=== PATIENT | female | born 1965 | race Caucasian/White ===

== ENCOUNTER 2018-07-11 14:34 | Emergency (ER) | payer MEDICARE, OTHER | END 2018-07-11 15:58 | disposition left against medical advice (07) | LOC: ER 14:34 | DX: Z53.21 Procedure and treatment not carried out due to patient leaving prior to being seen by health care provider (principal) ==

== ENCOUNTER → 2018-11-18 | Outpatient (CLI) | payer MEDICARE, OTHER ==
[2018-11-18 19:34] LABS: BASOPHILS ABSOLUTE AUTO 0.03 K/mm3 (0.00-0.23); BASOPHILS PERCENT AUTO 0 % (0-2); EOSINOPHILS ABSOLUTE AUTO 0.13 K/mm3 (0.00-0.68); EOSINOPHILS PERCENT AUTO 2 % (0-6); Hematocrit 42.2 % (33.0-51.0); Hemoglobin 14.2 g/dL (11.5-16.0); IMMATURE GRAN ABSOLUTE AUTO 0.01 K/mm3 (0.00-0.10); IMMATURE GRAN PERCENT AUTO 0 % (0-1); LYMPHOCYTES ABSOLUTE AUTO 1.76 K/mm3 (0.84-5.20); LYMPHOCYTES PERCENT AUTO 26 % (21-46); MONOCYTES ABSOLUTE AUTO 0.53 K/mm3 (0.16-1.47); MONOCYTES PERCENT AUTO 8 % (4-13); Mean Corpuscular HGB 28.9 pg (26.0-34.0); Mean Corpuscular HGB Conc 33.6 g/dL (31.5-36.5); Mean Corpuscular Volume 86 fL (80-100); NEUTROPHILS ABSOLUTE AUTO 4.41 K/mm3 (1.96-9.15); NEUTROPHILS PERCENT AUTO 64 % (41-73); Platelet Count 212 K/mm3 (150-400); RDW Coefficient Variation 12.8 % (11.7-14.2); RDW Standard Deviation 40.4 fL (35.1-46.3); Red Blood Cell Count 4.92 M/mm3 (3.80-5.20); White Blood Cell Count 6.87 K/mm3 (4.00-11.30)
[2018-11-18 19:56] LABS: LDL/HDL RATIO 1.9
[2018-11-18 19:57] LABS: Alanine Aminotransfer (ALT/SGP 26 U/L (12-78); Albumin, Blood 3.9 g/dL (3.4-5.0); Albumin/Globulin Ratio 1.1 (0.8-1.8); Alk Phos 114 U/L (50-136); Anion Gap 5 mmol/L (6-16); Aspartate Aminotrans (AST/SGOT 19 U/L (12-37); Bilirubin, Total 0.3 mg/dL (0.1-1.0); Blood Urea Nitrogen 17 mg/dL (8-24); CHOL/HDL RATIO 3.1; CO2, Blood 28 mmol/L (21-32); Calcium, Blood 8.9 mg/dL (8.5-10.1); Chloride, Blood 104 mmol/L (98-108); Cholesterol 243 mg/dL (50-200); Globulin, Blood 3.7 g/dL (2.2-4.0); Glucose, Blood 86 mg/dL (70-99); HDL Cholesterol 78 mg/dL (>39); Low Density Lipoprotein Chol 147 mg/dL (0-110); Potassium, Blood 3.7 mmol/L (3.5-5.5); Sodium, Blood 137 mmol/L (136-145); Total Protein, Blood 7.6 g/dL (6.4-8.2); Triglycerides 88 mg/dL (30-160); Very Low Density Lipoprot Chol 17 mg/dL (6-32)
[2018-11-18 20:12] LABS: Bun/Creatinine Ratio 22.4 (12.0-20.0); Carbamazepine 7.1 ug/mL (4.0-12.0); Creatinine, Blood 0.76 mg/dL (0.40-1.00); Glomerular Filtration Rate >60 (60-)
== END | disposition home or self-care (01) ==
LOC: LAB SHORT 16:45 → LAB 16:45
PROVIDERS: Physician Assistant
DX: E03.9 Hypothyroidism, unspecified (principal); I10 Essential (primary) hypertension; F32.89 Other specified depressive episodes
CPT/HCPCS: 80053; 80061; 80156; 84443; 85025

== ENCOUNTER 2023-06-11 16:45 | Emergency (ER) | payer MEDICARE, OTHER ==
[~2023-06-11] VITALS: Ht 172.7 cm; Wt 68.0 kg
[2023-06-11 17:12] LABS: BASOPHILS ABSOLUTE AUTO 0.05 K/mm3 (0.00-0.23); BASOPHILS PERCENT AUTO 1 % (0-2); EOSINOPHILS ABSOLUTE AUTO 0.06 K/mm3 (0.00-0.68); EOSINOPHILS PERCENT AUTO 1 % (0-6); Hematocrit 45.2 % (33.0-51.0); IMMATURE GRAN ABSOLUTE AUTO 0.02 K/mm3 (0.00-0.10); IMMATURE GRAN PERCENT AUTO 0 % (0-1); LYMPHOCYTES ABSOLUTE AUTO 1.16 K/mm3 (0.84-5.20); LYMPHOCYTES PERCENT AUTO 16 % (21-46); MONOCYTES ABSOLUTE AUTO 0.46 K/mm3 (0.16-1.47); MONOCYTES PERCENT AUTO 6 % (4-13); Mean Corpuscular HGB 27.7 pg (26.0-34.0); Mean Corpuscular HGB Conc 33.2 g/dL (31.5-36.5); Mean Corpuscular Volume 84 fL (80-100); Mean Platelet Volume 8.9 fL (9.1-12.4); NEUTROPHILS ABSOLUTE AUTO 5.43 K/mm3 (1.96-9.15); NEUTROPHILS PERCENT AUTO 76 % (41-73); Platelet Count 164 K/mm3 (150-400); RDW Coefficient Variation 13.2 % (11.7-14.2); RDW Standard Deviation 40.2 fL (35.1-46.3); Red Blood Cell Count 5.41 M/mm3 (3.80-5.20); White Blood Cell Count 7.18 K/mm3 (4.00-11.30)
[2023-06-11 17:33] LABS: Albumin, Blood 3.8 g/dL (3.4-5.0); Bilirubin, Total 0.4 mg/dL (0.1-1.0); Bun/Creatinine Ratio 23.9 (12.0-20.0); Calcium, Blood 9.8 mg/dL (8.5-10.1); Creatinine, Blood 0.67 mg/dL (0.40-1.00); Magnesium, Blood 2.2 mg/dL (1.6-2.4); Potassium, Blood 4.1 mmol/L (3.5-5.5); Total Protein, Blood 7.8 g/dL (6.4-8.2)
[2023-06-11] MEDS ORDERED: AMITRIPTYLINE100 M6 PO (21:36)
[2023-06-11] MEDS ORDERED: CARBAMAZEPINE200 M7 PO (21:36)
[2023-06-11] MEDS ORDERED: Synthroid/Levo0.2 MG PO (21:38)
[2023-06-11] MEDS ORDERED: Prinivil10 MG PO ×2 (21:38→21:53)
[2023-06-11 22:22] VITALS: BP 146/100
== END 2023-06-11 22:22 | disposition home or self-care (01) ==
LOC: ER 16:45
PROVIDERS: Physician Assistant
DX: R06.02 Shortness of breath (principal); F32.A Depression, unspecified; I10 Essential (primary) hypertension; R41.82 Altered mental status, unspecified
CPT/HCPCS: 71046; 80053; 83735; 85025; 99285-25; A9270

== ENCOUNTER → 2024-01-02 | Outpatient (CLI) | payer MEDICARE, OTHER ==
[~2024-01-02] MED LIST: AMITRIPTYLINE100 M6 PO; CARBAMAZEPINE200 M7 PO; Prinivil10 MG PO; Synthroid/Levo0.2 MG PO
[2024-01-02 19:12] LABS: Free Thyroxine 1.15 ng/dL (0.70-1.60)
[2024-01-02 19:16] LABS: Thyroid Stimulating Hormone 3.32 uIU/mL (0.360-4.800)
== END | disposition home or self-care (01) ==
LOC: LAB 09:50 → LAB SHORT 09:50
PROVIDERS: Nurse Practitioner Family
DX: E03.9 Hypothyroidism, unspecified (principal)
CPT/HCPCS: 84439; 84443

== ENCOUNTER 2024-07-13 16:02 | Emergency (ER) | payer MEDICARE, OTHER ==
[~2024-07-13] VITALS: Ht 177.8 cm; Wt 65.8 kg
[2024-07-13] MEDS ORDERED: EUTHYROX150 MC1 PO (17:13)
[2024-07-13] MEDS ORDERED: PRILOSEC OTC20 MG PO (17:13)
[2024-07-13] MEDS ORDERED: ATOR10 PO (17:13)
[2024-07-13] MEDS ORDERED: ZOLOFT25 MG PO (17:14)
[2024-07-13 17:21] LABS: BASOPHILS ABSOLUTE AUTO 0.05 K/mm3 (0.00-0.23); BASOPHILS PERCENT AUTO 1 % (0-2); EOSINOPHILS ABSOLUTE AUTO 0.03 K/mm3 (0.00-0.68); EOSINOPHILS PERCENT AUTO 0 % (0-6); Hematocrit 40.7 % (33.0-51.0); Hemoglobin 14.2 g/dL (11.5-16.0); IMMATURE GRAN ABSOLUTE AUTO 0.02 K/mm3 (0.00-0.10); IMMATURE GRAN PERCENT AUTO 0 % (0-1); LYMPHOCYTES ABSOLUTE AUTO 1.26 K/mm3 (0.84-5.20); LYMPHOCYTES PERCENT AUTO 12 % (21-46); MONOCYTES ABSOLUTE AUTO 0.93 K/mm3 (0.16-1.47); MONOCYTES PERCENT AUTO 9 % (4-13); Mean Corpuscular HGB 29.5 pg (26.0-34.0); Mean Corpuscular HGB Conc 34.9 g/dL (31.5-36.5); Mean Corpuscular Volume 85 fL (80-100); NEUTROPHILS ABSOLUTE AUTO 8.09 K/mm3 (1.96-9.15); NEUTROPHILS PERCENT AUTO 78 % (41-73); Platelet Count 228 K/mm3 (150-400); RDW Coefficient Variation 12.2 % (11.7-14.2); RDW Standard Deviation 37.5 fL (35.1-46.3); Red Blood Cell Count 4.81 M/mm3 (3.80-5.20); White Blood Cell Count 10.38 K/mm3 (4.00-11.30)
[2024-07-13 17:43] LABS: Albumin, Blood 4.1 g/dL (3.4-5.0); Albumin/Globulin Ratio 1.1 (0.8-1.8); Bilirubin, Total 0.5 mg/dL (0.1-1.0); Bun/Creatinine Ratio 38.4 (12.0-20.0); Calcium, Blood 9.6 mg/dL (8.5-10.1); Creatinine, Blood 0.63 mg/dL (0.40-1.00); Globulin, Blood 3.9 g/dL (2.2-4.0); Potassium, Blood 2.8 mmol/L (3.5-5.5)
[2024-07-13] MEDS ORDERED: Amitriptyline HCl 50 MG Tab PO ONE (18:05)
[2024-07-13] MEDS ORDERED: Amitriptyline HCl 50 MG Tab PO SCH (21:00)
[2024-07-14 03:00] VITALS: BP 99/78
[2024-07-14] MEDS ORDERED: Levothyroxine Sodium 0.15 MG Tab PO SCH (06:00)
[2024-07-14] MEDS ORDERED: Omeprazole 20 MG CapCR PO SCH (06:00)
[2024-07-14] MEDS ORDERED: Atorvastatin 10 MG Tab PO SCH (09:00)
[2024-07-14] MEDS ORDERED: Lisinopril 10 MG Tab PO SCH (09:00)
== END 2024-07-14 10:59 | disposition home or self-care (01) ==
LOC: ER 16:02
PROVIDERS: Student in an Organized Health Care Education/Training Program
DX: F41.9 Anxiety disorder, unspecified (principal); Z91.120 Patient's intentional underdosing of medication regimen due to financial hardship; F80.9 Developmental disorder of speech and language, unspecified; I10 Essential (primary) hypertension; K21.9 Gastro-esophageal reflux disease without esophagitis; Z88.0 Allergy status to penicillin; Z88.1 Allergy status to other antibiotic agents; Z79.899 Other long term (current) drug therapy; Z79.890 Hormone replacement therapy; Z79.02 Long term (current) use of antithrombotics/antiplatelets
CPT/HCPCS: 71046; 80053; 85025; 93005; 93010; 99285-25; A9270

== ENCOUNTER 2024-07-20 14:11 | Emergency (ER) | payer MEDICARE, OTHER ==
[~2024-07-20] VITALS: Ht 167.6 cm; Wt 53.5 kg
[~2024-07-20 14:11] MED LIST changes: +ATOR10 PO; +EUTHYROX150 MC1 PO; +PRILOSEC OTC20 MG PO; +ZOLOFT25 MG PO
[2024-07-20 14:49] VITALS: BP 110/73
== END 2024-07-20 16:09 | disposition left against medical advice (07) ==
LOC: ER 14:11
DX: Z76.89 Persons encountering health services in other specified circumstances (principal); I10 Essential (primary) hypertension; K21.9 Gastro-esophageal reflux disease without esophagitis; Z88.1 Allergy status to other antibiotic agents; Z79.899 Other long term (current) drug therapy; Z79.890 Hormone replacement therapy; Z79.1 Long term (current) use of non-steroidal anti-inflammatories (NSAID); Z79.02 Long term (current) use of antithrombotics/antiplatelets
CPT/HCPCS: 99283

== ENCOUNTER 2024-07-21 08:08 | Observation (INO) | payer MEDICARE, OTHER ==
[~2024-07-21] VITALS: Ht 177.8 cm; Wt 72.6 kg
[2024-07-21] MEDS ORDERED: LORazepam 1 MG Tab SL ONE (08:55)
[2024-07-21 09:50] VITALS: BP 115/90
[2024-07-21 09:53] LABS: Source, Urine Clean Catch
[2024-07-21 09:56] LABS: BASOPHILS ABSOLUTE AUTO 0.05 K/mm3 (0.00-0.23); BASOPHILS PERCENT AUTO 1 % (0-2); EOSINOPHILS ABSOLUTE AUTO 0.05 K/mm3 (0.00-0.68); EOSINOPHILS PERCENT AUTO 1 % (0-6); Hematocrit 41.4 % (33.0-51.0); Hemoglobin 14.1 g/dL (11.5-16.0); IMMATURE GRAN ABSOLUTE AUTO 0.02 K/mm3 (0.00-0.10); IMMATURE GRAN PERCENT AUTO 0 % (0-1); LYMPHOCYTES ABSOLUTE AUTO 1.08 K/mm3 (0.84-5.20); LYMPHOCYTES PERCENT AUTO 12 % (21-46); MONOCYTES ABSOLUTE AUTO 0.72 K/mm3 (0.16-1.47); MONOCYTES PERCENT AUTO 8 % (4-13); Mean Corpuscular HGB 29.4 pg (26.0-34.0); Mean Corpuscular HGB Conc 34.1 g/dL (31.5-36.5); Mean Corpuscular Volume 86 fL (80-100); Mean Platelet Volume 8.6 fL (9.1-12.4); NEUTROPHILS ABSOLUTE AUTO 7.26 K/mm3 (1.96-9.15); NEUTROPHILS PERCENT AUTO 79 % (41-73); Platelet Count 202 K/mm3 (150-400); RDW Coefficient Variation 12.6 % (11.7-14.2); Red Blood Cell Count 4.79 M/mm3 (3.80-5.20); White Blood Cell Count 9.18 K/mm3 (4.00-11.30)
[2024-07-21 10:01] LABS: Appearance, Urine Clear (Clear); Blood, Urine Neg (Neg); Color, Urine Yellow (P-Yellow); Glucose Qualitative, Urine Neg (Neg); Ketones, Urine 2+ (Neg); Leukocyte Esterase, Urine 2+ (Neg); Nitrite, Urine Neg (Neg); Protein, Urine 2+ (Neg); Specific Gravity, Urine 1.025 (1.003-1.022); Urobilinogen, Urine 2+ (Normal)
[2024-07-21 10:10] LABS: Bilirubin, Urine 1+ (Neg)
[2024-07-21 10:11] LABS: Squamous Epithelial Cells Many /hpf (Few)
[2024-07-21 10:12] LABS: Mucus Mod (0-Heavy); Red Blood Cells, Urine 0-2 /hpf (0-2); Yeast/Fungi Urine Many /hpf
[2024-07-21 10:13] LABS: Bacteria Mod /hpf
[2024-07-21 10:14] LABS: U Amphetamine Screen Not Detected; U Barbituate Screen Not Detected; U Benzodiazapine Screen DETECTED; U Buprenorphine Screen Not Detected; U Cannabinoids Screen Not Detected; U Cocaine Screen Not Detected; U Methadone Screen Not Detected; U Methamphetamine Screen Not Detected; U Opiates Screen Not Detected; U Oxycodone Screen Not Detected; U Phencyclidine Screen Not Detected
[2024-07-21 10:21] LABS: Ethanol (Alcohol), Blood, Med <3 mg/dL; Salicylate <1.7 mg/dL (2.8-20.0)
[2024-07-21 10:30] LABS: Alanine Aminotransfer (ALT/SGP 33 U/L (12-78); Alk Phos 91 U/L (50-136); Anion Gap 10 mmol/L (3-11); Aspartate Aminotrans (AST/SGOT 29 U/L (12-37); Bilirubin, Total 0.5 mg/dL (0.1-1.0); Blood Urea Nitrogen 20 mg/dL (8-24); Bun/Creatinine Ratio 35.5 (12.0-20.0); CO2, Blood 30 mmol/L (21-32); Calcium, Blood 9.1 mg/dL (8.5-10.1); Chloride, Blood 100 mmol/L (98-108); Creatinine, Blood 0.56 mg/dL (0.40-1.00); Globulin, Blood 3.9 g/dL (2.2-4.0); Glomerular Filtration Rate 104 (60-); Glucose, Blood 92 mg/dL (70-99); Potassium, Blood 3.2 mmol/L (3.5-5.5); Sodium, Blood 137 mmol/L (136-145); Total Protein, Blood 7.9 g/dL (6.4-8.2)
[2024-07-21 10:32] LABS: Acetaminophen, Random <2.0 ug/mL (10.0-30.0)
[2024-07-21] MEDS ORDERED: Potassium Chloride 20 MEQ TabCR PO ONE (10:35)
== END 2024-07-21 18:15 | disposition other institution (70) ==
LOC: ER 08:08 → EOR 15:27 → EDBEDREQSVC 15:27 → EOR 15:27 → EDBEDREQTM 15:27 → EDBEDREQ 15:27 → EOR 18:15
PROVIDERS: Physician Assistant; ADMIT Emergency Medicine
DX: F32.A Depression, unspecified (principal); R06.02 Shortness of breath; E03.9 Hypothyroidism, unspecified; I10 Essential (primary) hypertension; K21.9 Gastro-esophageal reflux disease without esophagitis; Z91.419 Personal history of unspecified adult abuse; Z79.890 Hormone replacement therapy; Z79.899 Other long term (current) drug therapy; Z88.0 Allergy status to penicillin; Z88.1 Allergy status to other antibiotic agents
CPT/HCPCS: 80053; 80320; 81001; 85025; 87086; 99285; A9270; G0378; G0480

== ENCOUNTER 2024-07-21 15:36 | Inpatient (IN) | payer MEDICARE, OTHER ==
[~2024-07-21] VITALS: Ht 177.8 cm; Wt 70.7 kg
[2024-07-21] MEDS ORDERED: Ibuprofen 600 MG Tab PO PRN (16:45)
[2024-07-21] MEDS ORDERED: Aluminum Hydroxide 320MG/5ML 473 ML PO PRN (16:45)
[2024-07-21] MEDS ORDERED: FLU VACC TS2024-25(6MOS UP)/PF 45 MCG/0.5 ML SYRINGE IM SCH (16:45)
[2024-07-21] MEDS ORDERED: HydrOXYzine Pamoate 50 MG Cap PO PRN (16:45)
[2024-07-21] MEDS ORDERED: TraZODone HCl 50 MG Tab PO PRN (16:50)
[2024-07-21] MEDS ORDERED: Acetaminophen 325 MG TABLET PO PRN (16:50)
[2024-07-21] MEDS ORDERED: Polyethylene Glycol 3350 17 gm PO PRN (16:50)
[2024-07-21] MEDS ORDERED: Calcium Carbonate 500 MG Tab Chew PO PRN (16:50)
[2024-07-21] MEDS ORDERED: Melatonin 3 MG Tab PO PRN (16:50)
[2024-07-21] MEDS ORDERED: OLANZapine ODT 10 MG Tab MM PRN (16:50)
[2024-07-21] MEDS ORDERED: Ondansetron 4 MG SoluTab MM PRN (17:05)
[2024-07-21 20:21] VITALS: BP 118/99
[2024-07-21 20:35] VITALS: BP 118/99
--- NOTE | 2024-07-21 21:17 | NUR ---
ADMISSION NOTE: PATIENT ARRIVED ON [facility] AT 1817. SKIN CHECK WAS DONE AND THEN SHIFT CHANGE OCCURRED. RN MET WITH PATIENT IN VISITOR ROOM TO COMPLETE ADMISSION. PATIENT IS A GOOD HISTORIAN. SHE DOES NOT VERBALIZE BUT IS ABLE TO MAKE INFORMATION AND NEEDS KNOWN. SHE USES A PEN AND PAD. HER HANDWRITING IS PARKINSON-LIKE IN APPEARANCE, AND SHE DOES TAKE LEVA-DOPA OR HAS TAKEN IT IN THE PAST. IT WAS NOT ON HER MED RECONCILIATION AND SHE WAS UNSURE. WILL ATTEMPT TO TALK TO SPOUSE AND WILL LET DR KNOW. SHE ALSO STATED SHE TAKES CARBAMAZEPINE, ALTHOUGH HER MED LIST FROM THE EMERGENCY DEPARTMENT HAS IT DISCONTINUED. WILL NOTIFY DR REGARDING THAT MEDICATION WELL. PATIENT DECLINED OFFER OF FLU SHOT. SHE WAS ABLE TO GIVE A GOOD MEDICAL AND PSYCH HISTORY. SHE STATED THAT SHE HAS BEEN DIAGNOSED IN THE PAST WITH "BIPOLAR WITH DEPRESSION". SHE STATED THAT SHE WAS "ANXIOUS AND DEPRESSED" AND "CONSIDERED TAKING PILLS". SHE STATED THAT IT DID NOT FORMULATE INTO AN ACTUAL PLAN. SHE HAS SCARS ON LEFT WRIST AND PARTWAY UP ARM, WHICH SHE STATES ARE OLD SCARS FROM SELF CUTTING "YEARS AGO". SHE ADMITS TO BEING A FORMER SMOKER, 10 YEARS AT A PACK A DAY, STOPPED SMOKING 22 YEARS AGO. SHE HAS ALLERGIES TO SEROQUEL AND THE PENICILLINS. SHE USES A WALKER TO GET AROUND AT HOME, AND HAS AGREED TO USE A WHEELCHAIR HERE, HER WALK IS QUITE UNSTEADY. SHE STATED THAT SHE HAS HAD "SEVERAL" FALLS IN THE PAST THREE MONTHS. SHE PERFORMS OWN ADLS, EVEN IF IT TAKES HER SOME TIME, AND PREFERS TO REMAIN INDEPENDENT POSSIBLE. SHE STATES THAT HER SPOUSE WAS TALKING DOWN TO HER AND YELLING, WHICH HE ONLY DOES WHEN HE HAS BEEN DRINKING. SHE DENIES HIM EVER BEING PHYSICALLY ABUSIVE. SHE WANTS TO GO HOME TO HIM AND HAS BEEN CRYING OFF AND ON, STATING THAT SHE IS CRYING BECAUSE SHE MISSES HIM. VITAL SIGNS WERE WNL. DID NOT WEIGH DUE TO ISSUES WITH UNSTEADINESS. PATIENT STATES WEIGHT IS ABOUT 156 LB. PATIENT IS PLEASANT AND COOPERATIVE WITH CARES. SHE IS FRIENDLY, DESPITE NOT SPEAKING, AND SEEMS COMFORTABLE WITH PEERS. SHE WAS COMPLIANT WITH EVENING MEDICATIONS AND HAD A SNACK AND DRINK WITH PEERS. SHE IS WATCHING AN MOVIE WITH STAFF AND PEERS AT THIS TIME. CONTINUING TO MONITOR FOR SAFETY WITH Q15 MINUTE CHECKS.
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
[2024-07-22 07:53] VITALS: BP 114/68
[2024-07-22] MEDS ORDERED: Multivitamins 1 Tab PO SCH (09:00)
[2024-07-22] MEDS ORDERED: Sertraline HCl 50 MG Tab PO SCH (09:00)
[2024-07-22] MEDS ORDERED: Atorvastatin 10 MG Tab PO SCH (09:00)
[2024-07-22] MEDS ORDERED: Amitriptyline HCl 50 MG Tab PO SCH (09:00)
[2024-07-22] MEDS ORDERED: Levothyroxine Sodium 0.15 MG Tab PO SCH (09:00)
[2024-07-22] MEDS ORDERED: Lisinopril 10 MG Tab PO SCH (09:00)
--- NOTE | 2024-07-22 15:06 | NUR ---
IMPORTANT DISCHARGE INFORMATION FOLLOW UP APPOINTMENT WITH MARITZA RITTER ON 08/10/24 AT 2:50PM PHARMACY: [facility]
--- NOTE | 2024-07-22 18:29 | NUR ---
SHIFT NOTE PT CALM AT BEGINING OF SHIFT AND ASKING FOR HER CELL PHONE TO CONTACT WILLIE. SHE IS REQUSTING TO D/C BACK WITH HIM. SHE CONTINUES TO BE NON-VERBAL AND USES A NOTEPAD AND PEN TO COMMUNICATE. SHE STARTED TO SLOWLY GET INCREASINGLY ANXIOUS THROUGH THE SHIFT. CONTINUOUSLY ASKING DIFFERENT STAFF TO CONTACT HER , AND SHOWER, AND GET HER NEW SOCKS AND PUT THEM ON HER. PT WAS TOLD MULTIPLE TIMES THAT STAFF IS AWARE OF HER NEEDS AND THEY WILL BE TENDED TO WHEN STAFF CAN. SHE DENIES ANY HI/SI/AVTH AND WAS COOPERATIVE WITH ALL MEDS.
[2024-07-22 20:52] VITALS: BP 101/89
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
[2024-07-23] MEDS ORDERED: Omeprazole 20 MG CapCR PO SCH (06:00)
--- NOTE | 2024-07-23 13:20 | NUR ---
DISCHARGE SUMMARY PT GIVEN D/C PACKET AND SIGNED D/C FORM. SHE WAS GIVEN ALL OF HER BELONGINGS AND DRESSED HERSELF IN HER OWN CLOTHING. PT'S IS AT [facility] TO TRANSPORT PT HOME. PT ESCORTED OUT OF FACILITY TO HER HER HUSBANDS VEHICLE. NO NEW MEDICATIONS WERE ORDERED AND PT STATE UNDERSTANDING TO CONTINUE ALL REGULAR MEDICATIONS AND FOLLOW UP WITH HER PCP.
== END 2024-07-23 13:10 | disposition home or self-care (01) | DRG 882 ==
LOC: BHU 15:36
PROVIDERS: ADMIT Psychiatry & Neurology Psychiatry
DX: F43.25 Adjustment disorder with mixed disturbance of emotions and conduct (principal); Z59.01 Sheltered homelessness; E03.9 Hypothyroidism, unspecified; I10 Essential (primary) hypertension; K21.9 Gastro-esophageal reflux disease without esophagitis; F32.A Depression, unspecified; Z88.0 Allergy status to penicillin; Z88.8 Allergy status to other drugs, medicaments and biological substances; Z79.899 Other long term (current) drug therapy; Z79.1 Long term (current) use of non-steroidal anti-inflammatories (NSAID)
CPT/HCPCS: A9270

== ENCOUNTER 2024-09-14 22:08 | Emergency (ER) | payer MEDICARE, OTHER ==
[~2024-09-14] VITALS: Ht 167.6 cm; Wt 68.0 kg
[2024-09-14 22:31] VITALS: BP 146/93
== END 2024-09-14 22:58 | disposition home or self-care (01) ==
LOC: ER 22:08
DX: F41.9 Anxiety disorder, unspecified (principal); Z79.899 Other long term (current) drug therapy; Z88.0 Allergy status to penicillin; Z88.8 Allergy status to other drugs, medicaments and biological substances
CPT/HCPCS: 93005; 93010; 99282

== ENCOUNTER 2024-09-15 04:09 | Emergency (ER) | payer MEDICARE, OTHER ==
[~2024-09-15] VITALS: Ht 175.3 cm; Wt 63.5 kg
[2024-09-15] MEDS ORDERED: Omeprazole 20 MG CapCR PO ONE (10:00)
[2024-09-15] MEDS ORDERED: Amitriptyline HCl 50 MG Tab PO ONE (10:00)
[2024-09-15] MEDS ORDERED: Sertraline HCl 50 MG Tab PO ONE (10:00)
[2024-09-15] MEDS ORDERED: Atorvastatin 10 MG Tab PO ONE (10:00)
[2024-09-15] MEDS ORDERED: Levothyroxine Sodium 0.15 MG Tab PO ONE (10:00)
[2024-09-15] MEDS ORDERED: Lisinopril 10 MG Tab PO ONE (10:00)
[2024-09-15 10:26] VITALS: BP 114/94
== END 2024-09-15 12:09 | disposition home or self-care (01) ==
LOC: ER 04:09
DX: Z76.0 Encounter for issue of repeat prescription (principal); E03.9 Hypothyroidism, unspecified; I10 Essential (primary) hypertension; F32.A Depression, unspecified; K21.9 Gastro-esophageal reflux disease without esophagitis; Z79.890 Hormone replacement therapy; Z88.0 Allergy status to penicillin; Z88.1 Allergy status to other antibiotic agents; Z79.899 Other long term (current) drug therapy
CPT/HCPCS: 99281; A9270

== ENCOUNTER 2024-09-29 04:52 | Emergency (ER) | payer MEDICARE, OTHER ==
[~2024-09-29] VITALS: Ht 170.2 cm; Wt 63.5 kg
[2024-09-29 06:46] LABS: BASOPHILS ABSOLUTE AUTO 0.04 K/mm3 (0.00-0.23); BASOPHILS PERCENT AUTO 0 % (0-2); EOSINOPHILS ABSOLUTE AUTO 0.14 K/mm3 (0.00-0.68); EOSINOPHILS PERCENT AUTO 1 % (0-6); Hemoglobin 14.1 g/dL (11.5-16.0); IMMATURE GRAN ABSOLUTE AUTO 0.03 K/mm3 (0.00-0.10); IMMATURE GRAN PERCENT AUTO 0 % (0-1); LYMPHOCYTES ABSOLUTE AUTO 0.96 K/mm3 (0.84-5.20); LYMPHOCYTES PERCENT AUTO 9 % (21-46); MONOCYTES PERCENT AUTO 7 % (4-13); Mean Corpuscular HGB 29.5 pg (26.0-34.0); Mean Corpuscular HGB Conc 33.6 g/dL (31.5-36.5); Mean Corpuscular Volume 88 fL (80-100); Mean Platelet Volume 9.3 fL (9.1-12.4); NEUTROPHILS ABSOLUTE AUTO 8.89 K/mm3 (1.96-9.15); NEUTROPHILS PERCENT AUTO 82 % (41-73); Platelet Count 211 K/mm3 (150-400); RDW Standard Deviation 45.4 fL (35.1-46.3); Red Blood Cell Count 4.78 M/mm3 (3.80-5.20); White Blood Cell Count 10.86 K/mm3 (4.00-11.30)
[2024-09-29 07:00] LABS: Bun/Creatinine Ratio 30.3 (12.0-20.0); Creatinine, Blood 0.59 mg/dL (0.40-1.00); Potassium, Blood 2.9 mmol/L (3.5-5.5)
[2024-09-29] MEDS ORDERED: Potassium Chloride 20 MEQ TabCR PO ONE (07:10)
[2024-09-29 08:30] VITALS: BP 138/90
== END 2024-09-29 08:57 | disposition home or self-care (01) ==
LOC: ER 04:52
PROVIDERS: Emergency Medicine
DX: R07.9 Chest pain, unspecified (principal); E87.6 Hypokalemia; E03.9 Hypothyroidism, unspecified; K21.9 Gastro-esophageal reflux disease without esophagitis; I10 Essential (primary) hypertension; Z88.0 Allergy status to penicillin; Z88.8 Allergy status to other drugs, medicaments and biological substances; Z79.899 Other long term (current) drug therapy; Z79.890 Hormone replacement therapy
CPT/HCPCS: 80048; 84484; 85025; 93005; 93010; 99285-25; A9270

== ENCOUNTER 2024-09-30 13:37 | Emergency (ER) | payer MEDICARE, OTHER ==
[~2024-09-30] VITALS: Ht 177.8 cm; Wt 74.8 kg
[2024-09-30 14:12] VITALS: BP 123/95
[2024-09-30 15:20] LABS: BASOPHILS ABSOLUTE AUTO 0.06 K/mm3 (0.00-0.23); BASOPHILS PERCENT AUTO 1 % (0-2); EOSINOPHILS ABSOLUTE AUTO 0.11 K/mm3 (0.00-0.68); EOSINOPHILS PERCENT AUTO 1 % (0-6); Hematocrit 41.6 % (33.0-51.0); Hemoglobin 13.8 g/dL (11.5-16.0); IMMATURE GRAN ABSOLUTE AUTO 0.02 K/mm3 (0.00-0.10); IMMATURE GRAN PERCENT AUTO 0 % (0-1); LYMPHOCYTES ABSOLUTE AUTO 0.81 K/mm3 (0.84-5.20); LYMPHOCYTES PERCENT AUTO 8 % (21-46); MONOCYTES ABSOLUTE AUTO 0.77 K/mm3 (0.16-1.47); MONOCYTES PERCENT AUTO 8 % (4-13); Mean Corpuscular HGB 29.4 pg (26.0-34.0); Mean Corpuscular HGB Conc 33.2 g/dL (31.5-36.5); Mean Corpuscular Volume 89 fL (80-100); Mean Platelet Volume 9.2 fL (9.1-12.4); NEUTROPHILS PERCENT AUTO 82 % (41-73); Platelet Count 229 K/mm3 (150-400); RDW Coefficient Variation 14.1 % (11.7-14.2); RDW Standard Deviation 45.5 fL (35.1-46.3); Red Blood Cell Count 4.69 M/mm3 (3.80-5.20); White Blood Cell Count 9.67 K/mm3 (4.00-11.30)
[2024-09-30 15:44] LABS: Source, Urine Voided
[2024-09-30 15:55] LABS: Ethanol (Alcohol), Blood, Med <3 mg/dL; Salicylate <1.7 mg/dL (2.8-20.0)
[2024-09-30 15:57] LABS: Acetaminophen, Random <2.0 ug/mL (10.0-30.0); Alanine Aminotransfer (ALT/SGP 21 U/L (12-78); Albumin, Blood 3.8 g/dL (3.4-5.0); Alk Phos 83 U/L (50-136); Anion Gap 8 mmol/L (3-11); Aspartate Aminotrans (AST/SGOT 25 U/L (12-37); Bilirubin, Total 0.6 mg/dL (0.1-1.0); Blood Urea Nitrogen 20 mg/dL (8-24); Bun/Creatinine Ratio 26.7 (12.0-20.0); CO2, Blood 28 mmol/L (21-32); Calcium, Blood 9.2 mg/dL (8.5-10.1); Chloride, Blood 104 mmol/L (98-108); Creatinine, Blood 0.75 mg/dL (0.40-1.00); Globulin, Blood 3.9 g/dL (2.2-4.0); Glomerular Filtration Rate 91 (60-); Glucose, Blood 106 mg/dL (70-99); Potassium, Blood 3.4 mmol/L (3.5-5.5); Sodium, Blood 137 mmol/L (136-145); Total Protein, Blood 7.7 g/dL (6.4-8.2)
[2024-09-30 15:59] LABS: Appearance, Urine Cloudy (Clear); Blood, Urine 1+ (Neg); Color, Urine Yellow (P-Yellow); Glucose Qualitative, Urine Neg (Neg); Ketones, Urine 1+ (Neg); Leukocyte Esterase, Urine 3+ (Neg); Nitrite, Urine Neg (Neg); Protein, Urine 2+ (Neg); Specific Gravity, Urine 1.025 (1.003-1.022); Urobilinogen, Urine 3+ (Normal)
[2024-09-30 16:43] LABS: Bilirubin, Urine 1+ (Neg); Yeast/Fungi Urine Many /hpf
[2024-09-30 16:44] LABS: Bacteria Many /hpf; Mucus Mod (0-Heavy); Squamous Epithelial Cells Many /hpf (Few); White Blood Cells, Urine 50-100 /hpf (0-5)
[2024-09-30 16:53] LABS: U Amphetamine Screen Not Detected; U Barbituate Screen Not Detected; U Benzodiazapine Screen Not Detected; U Buprenorphine Screen Not Detected; U Cannabinoids Screen Not Detected; U Cocaine Screen Not Detected; U Methadone Screen Not Detected; U Methamphetamine Screen Not Detected; U Opiates Screen Not Detected; U Oxycodone Screen Not Detected; U Phencyclidine Screen Not Detected
== END 2024-09-30 16:55 | disposition home or self-care (01) ==
LOC: ER 13:37
PROVIDERS: Emergency Medicine
DX: F32.A Depression, unspecified (principal); E03.9 Hypothyroidism, unspecified; I10 Essential (primary) hypertension; K21.9 Gastro-esophageal reflux disease without esophagitis; Z88.0 Allergy status to penicillin; Z88.8 Allergy status to other drugs, medicaments and biological substances; Z79.899 Other long term (current) drug therapy; Z79.890 Hormone replacement therapy
CPT/HCPCS: 36415; 80053; 80320; 81001; 81025; 85025; 87086; 87106; 93005; 93010; 99285-25; G0480

== ENCOUNTER 2024-10-08 18:58 | Emergency (ER) | payer MEDICARE, OTHER ==
[~2024-10-08] VITALS: Ht 162.6 cm; Wt 65.8 kg
[2024-10-08] MEDS ORDERED: Aspirin 325 MG Tab PO ONE (19:30)
[2024-10-08] MEDS ORDERED: Acetaminophen 500 MG Tab PO ONE (19:30)
[2024-10-08 20:02] LABS: BASOPHILS ABSOLUTE AUTO 0.04 K/mm3 (0.00-0.23); BASOPHILS PERCENT AUTO 0 % (0-2); EOSINOPHILS ABSOLUTE AUTO 0.03 K/mm3 (0.00-0.68); EOSINOPHILS PERCENT AUTO 0 % (0-6); Hematocrit 37.5 % (33.0-51.0); Hemoglobin 12.7 g/dL (11.5-16.0); IMMATURE GRAN ABSOLUTE AUTO 0.04 K/mm3 (0.00-0.10); IMMATURE GRAN PERCENT AUTO 0 % (0-1); LYMPHOCYTES ABSOLUTE AUTO 1.26 K/mm3 (0.84-5.20); LYMPHOCYTES PERCENT AUTO 10 % (21-46); MONOCYTES ABSOLUTE AUTO 1.13 K/mm3 (0.16-1.47); MONOCYTES PERCENT AUTO 9 % (4-13); Mean Corpuscular HGB 29.1 pg (26.0-34.0); Mean Corpuscular HGB Conc 33.9 g/dL (31.5-36.5); Mean Corpuscular Volume 86 fL (80-100); Mean Platelet Volume 9.2 fL (9.1-12.4); NEUTROPHILS ABSOLUTE AUTO 10.26 K/mm3 (1.96-9.15); NEUTROPHILS PERCENT AUTO 80 % (41-73); Platelet Count 217 K/mm3 (150-400); RDW Coefficient Variation 14.2 % (11.7-14.2); RDW Standard Deviation 44.8 fL (35.1-46.3); Red Blood Cell Count 4.36 M/mm3 (3.80-5.20); White Blood Cell Count 12.76 K/mm3 (4.00-11.30)
[2024-10-08] MEDS ORDERED: Morphine Sulfate 4 MG/1 ML Injection IV ONE ×2 (20:15→21:30)
[2024-10-08 20:23] LABS: Bun/Creatinine Ratio 36.1 (12.0-20.0); Calcium, Blood 8.9 mg/dL (8.5-10.1); Creatinine, Blood 0.58 mg/dL (0.40-1.00); Magnesium, Blood 1.7 mg/dL (1.6-2.4); Potassium, Blood 3.2 mmol/L (3.5-5.5)
[2024-10-08] MEDS ORDERED: MethylPREDNISolone Sod Succ 125 MG Vial IV ONE (20:45)
[2024-10-08] MEDS ORDERED: Ipratropium/Albuterol SulF 2.5-0.5MG/3 ML Amp INH ONE (20:45)
[2024-10-08 21:12] LABS: Source, Urine Clean Catch
[2024-10-08 21:15] LABS: Appearance, Urine Cloudy (Clear); Blood, Urine 1+ (Neg); Color, Urine Yellow (P-Yellow); Glucose Qualitative, Urine Neg (Neg); Ketones, Urine 4+ (Neg); Leukocyte Esterase, Urine 3+ (Neg); Nitrite, Urine Neg (Neg); Protein, Urine 2+ (Neg); Specific Gravity, Urine 1.025 (1.003-1.022); Urobilinogen, Urine 2+ (Normal)
[2024-10-08] MEDS ORDERED: Magnesium Oxide 400 MG Tab PO ONE (21:25)
[2024-10-08] MEDS ORDERED: Potassium Chloride 20 MEQ TabCR PO ONE (21:25)
[2024-10-08 21:26] LABS: Bilirubin, Urine 1+ (Neg)
[2024-10-08 21:27] LABS: Bacteria Mod /hpf; Red Blood Cells, Urine 0-2 /hpf (0-2); Squamous Epithelial Cells Rare /hpf (Few); Yeast/Fungi Urine Many /hpf
[2024-10-08 21:28] LABS: Mucus Heavy (0-Heavy)
[2024-10-08] MEDS ORDERED: ACET500 PO (22:20)
[2024-10-08] MEDS ORDERED: LEVOFLOXACIN250 M9 PO (22:20)
[2024-10-08] MEDS ORDERED: LevoFLOXacin 750 MG Tab PO ONE (22:20)
[2024-10-09] MEDS ORDERED: Levothyroxine Sodium 0.15 MG Tab PO SCH (06:00)
[2024-10-09] MEDS ORDERED: OLANZapine ODT 5 MG Tab MM ONE (06:50)
[2024-10-09 08:23] LABS: BASOPHILS ABSOLUTE AUTO 0.01 K/mm3 (0.00-0.23); BASOPHILS PERCENT AUTO 0 % (0-2); EOSINOPHILS PERCENT AUTO 0 % (0-6); Hematocrit 38.4 % (33.0-51.0); Hemoglobin 13.5 g/dL (11.5-16.0); IMMATURE GRAN ABSOLUTE AUTO 0.02 K/mm3 (0.00-0.10); IMMATURE GRAN PERCENT AUTO 0 % (0-1); LYMPHOCYTES ABSOLUTE AUTO 0.24 K/mm3 (0.84-5.20); LYMPHOCYTES PERCENT AUTO 3 % (21-46); MONOCYTES ABSOLUTE AUTO 0.11 K/mm3 (0.16-1.47); MONOCYTES PERCENT AUTO 1 % (4-13); Mean Corpuscular HGB 29.9 pg (26.0-34.0); Mean Corpuscular HGB Conc 35.2 g/dL (31.5-36.5); Mean Corpuscular Volume 85 fL (80-100); Mean Platelet Volume 9.3 fL (9.1-12.4); NEUTROPHILS ABSOLUTE AUTO 7.83 K/mm3 (1.96-9.15); NEUTROPHILS PERCENT AUTO 96 % (41-73); Platelet Count 247 K/mm3 (150-400); RDW Coefficient Variation 14.5 % (11.7-14.2); RDW Standard Deviation 44.9 fL (35.1-46.3); Red Blood Cell Count 4.52 M/mm3 (3.80-5.20); White Blood Cell Count 8.21 K/mm3 (4.00-11.30)
[2024-10-09 08:27] VITALS: BP 121/82
[2024-10-09 08:57] LABS: Ethanol (Alcohol), Blood, Med <3 mg/dL; Salicylate 1.7 mg/dL (2.8-20.0)
[2024-10-09 08:58] LABS: Acetaminophen, Random <2.0 ug/mL (10.0-30.0)
[2024-10-09] MEDS ORDERED: Lisinopril 10 MG Tab PO SCH (09:00)
[2024-10-09] MEDS ORDERED: Omeprazole 20 MG CapCR PO SCH (09:00)
[2024-10-09] MEDS ORDERED: HyDROXyzine HCl 25 MG Tab PO ONE (09:10)
[2024-10-09] MEDS ORDERED: Ketorolac Tromethamine 30mg Vial IV ONE (13:55)
[2024-10-09] MEDS ORDERED: Metoclopramide HCl 10 MG Tab PO ONE (13:55)
[2024-10-09] MEDS ORDERED: CARBAMAZEPINE100 M6 PO (15:02)
[2024-10-09] MEDS ORDERED: OMEP20ER PO (15:03)
[2024-10-09] MEDS ORDERED: Amitriptyline HCl 50 MG Tab PO SCH (21:00)
[2024-10-09] MEDS ORDERED: Atorvastatin 10 MG Tab PO SCH (21:00)
[2024-10-10] MEDS ORDERED: ALBU90OI INH (20:58)
[2024-10-12] MEDS ORDERED: ALEVAZOL56.7 G1 TOP (13:36)
[2024-10-21] MEDS ORDERED: HYDHCL25 PO (16:10)
== END 2024-10-09 15:04 | disposition home or self-care (01) ==
LOC: ER 18:58
PROVIDERS: Emergency Medicine; Student in an Organized Health Care Education/Training Program
DX: J18.9 Pneumonia, unspecified organism (principal); I31.39 Other pericardial effusion (noninflammatory); N39.0 Urinary tract infection, site not specified; E87.6 Hypokalemia; Z88.0 Allergy status to penicillin; Z88.8 Allergy status to other drugs, medicaments and biological substances; I10 Essential (primary) hypertension; K21.9 Gastro-esophageal reflux disease without esophagitis
CPT/HCPCS: 36415; 71045; 71260; 80048; 80320; 81001; 83605; 83735; 84484; 85025; 85379; 87040; 87086; 87106; 94640; 94664; 96374; 96375; 99285-25; A9270; G0480; J1885; J2270; J2919; Q9967

== ENCOUNTER 2024-10-14 09:41 | Emergency (ER) | payer MEDICARE, OTHER ==
[~2024-10-14] VITALS: Ht 177.8 cm; Wt 74.8 kg
[~2024-10-14 09:41] MED LIST changes: +ACET500 PO; +ALBU90OI INH; +ALEVAZOL56.7 G1 TOP; +CARBAMAZEPINE100 M6 PO; +LEVOFLOXACIN250 M9 PO; +OMEP20ER PO
[2024-10-14 09:49] VITALS: BP 128/102
[2024-10-14] MEDS ORDERED: Ipratropium/Albuterol SulF 2.5-0.5MG/3 ML Amp INH ONE (09:50)
[2024-10-14 10:38] LABS: BASOPHILS ABSOLUTE AUTO 0.03 K/mm3 (0.00-0.23); BASOPHILS PERCENT AUTO 0 % (0-2); EOSINOPHILS ABSOLUTE AUTO 0.04 K/mm3 (0.00-0.68); EOSINOPHILS PERCENT AUTO 1 % (0-6); Hematocrit 41.9 % (33.0-51.0); Hemoglobin 14.4 g/dL (11.5-16.0); IMMATURE GRAN ABSOLUTE AUTO 0.03 K/mm3 (0.00-0.10); IMMATURE GRAN PERCENT AUTO 0 % (0-1); LYMPHOCYTES ABSOLUTE AUTO 0.94 K/mm3 (0.84-5.20); LYMPHOCYTES PERCENT AUTO 11 % (21-46); MONOCYTES ABSOLUTE AUTO 0.67 K/mm3 (0.16-1.47); MONOCYTES PERCENT AUTO 8 % (4-13); Mean Corpuscular HGB 29.4 pg (26.0-34.0); Mean Corpuscular HGB Conc 34.4 g/dL (31.5-36.5); Mean Corpuscular Volume 86 fL (80-100); Mean Platelet Volume 8.9 fL (9.1-12.4); NEUTROPHILS ABSOLUTE AUTO 7.04 K/mm3 (1.96-9.15); NEUTROPHILS PERCENT AUTO 81 % (41-73); Platelet Count 244 K/mm3 (150-400); RDW Coefficient Variation 14.3 % (11.7-14.2); RDW Standard Deviation 44.8 fL (35.1-46.3); White Blood Cell Count 8.75 K/mm3 (4.00-11.30)
[2024-10-14 11:14] LABS: Albumin, Blood 4.1 g/dL (3.4-5.0); Albumin/Globulin Ratio 1.1 (0.8-1.8); Bilirubin, Total 0.9 mg/dL (0.1-1.0); Bun/Creatinine Ratio 37.5 (12.0-20.0); Calcium, Blood 9.1 mg/dL (8.5-10.1); Creatinine, Blood 0.61 mg/dL (0.40-1.00); Globulin, Blood 3.7 g/dL (2.2-4.0); Potassium, Blood 3.1 mmol/L (3.5-5.5); Total Protein, Blood 7.8 g/dL (6.4-8.2)
[2024-10-15] MEDS ORDERED: ALBU90OI INH (08:38)
[2024-10-15] MEDS ORDERED: PRED20 PO (08:38)
[2024-10-21] MEDS ORDERED: HYDHCL25 PO (16:10)
== END 2024-10-14 13:34 | disposition left against medical advice (07) ==
LOC: ER 09:41
PROVIDERS: Emergency Medicine
DX: R06.02 Shortness of breath (principal); E03.9 Hypothyroidism, unspecified; I10 Essential (primary) hypertension; K21.9 Gastro-esophageal reflux disease without esophagitis; Z53.29 Procedure and treatment not carried out because of patient's decision for other reasons; Z88.0 Allergy status to penicillin; Z88.1 Allergy status to other antibiotic agents; Z88.8 Allergy status to other drugs, medicaments and biological substances; Z79.890 Hormone replacement therapy; Z79.899 Other long term (current) drug therapy
CPT/HCPCS: 71046; 80053; 83880; 84484; 85025; 93005; 93010; 99283-25

== ENCOUNTER 2024-10-15 06:47 | Emergency (ER) | payer MEDICARE, OTHER ==
[~2024-10-15] VITALS: Ht 177.8 cm; Wt 74.8 kg
[2024-10-15] MEDS ORDERED: PredniSONE 20 MG Tab PO ONE (06:55)
[2024-10-15] MEDS ORDERED: Ipratropium/Albuterol SulF 2.5-0.5MG/3 ML Amp INH ONE (06:55)
[2024-10-15] MEDS ORDERED: HyDROXyzine HCl 25 MG Tab PO ONE ×2 (07:50→08:40)
[2024-10-15] MEDS ORDERED: PRED20 PO (08:38)
[2024-10-15] MEDS ORDERED: ALBU90OI INH (08:38)
[2024-10-15 09:15] VITALS: BP 140/78
[2024-10-21] MEDS ORDERED: HYDHCL25 PO (16:10)
== END 2024-10-15 09:50 | disposition home or self-care (01) ==
LOC: ER 06:47
DX: J44.1 Chronic obstructive pulmonary disease with (acute) exacerbation (principal); J45.901 Unspecified asthma with (acute) exacerbation; F41.9 Anxiety disorder, unspecified; I10 Essential (primary) hypertension; K21.9 Gastro-esophageal reflux disease without esophagitis; E03.9 Hypothyroidism, unspecified; Z88.0 Allergy status to penicillin; Z79.899 Other long term (current) drug therapy; Z79.890 Hormone replacement therapy; Z59.9 Problem related to housing and economic circumstances, unspecified
CPT/HCPCS: 71046; 93005; 93010; 99285-25; A9270; J7512

== ENCOUNTER 2024-11-13 20:17 | Emergency (ER) | payer MEDICARE, OTHER ==
[~2024-11-13] VITALS: Ht 167.6 cm; Wt 63.5 kg
[~2024-11-13 20:17] MED LIST changes: +HYDHCL25 PO; +PRED20 PO
[2024-11-13 20:50] VITALS: BP 122/100
== END 2024-11-13 23:15 | disposition home or self-care (01) ==
LOC: ER 20:17
DX: R06.00 Dyspnea, unspecified (principal); J45.909 Unspecified asthma, uncomplicated; E03.9 Hypothyroidism, unspecified; I10 Essential (primary) hypertension; K21.9 Gastro-esophageal reflux disease without esophagitis; Z86.73 Personal history of transient ischemic attack (TIA), and cerebral infarction without residual deficits; Z79.899 Other long term (current) drug therapy; Z88.0 Allergy status to penicillin; Z88.8 Allergy status to other drugs, medicaments and biological substances
CPT/HCPCS: 99284; A9270

== ENCOUNTER 2024-11-20 16:52 | Emergency (ER) | payer MEDICARE, OTHER ==
[~2024-11-20] VITALS: Ht 177.8 cm; Wt 70.3 kg
[2024-11-20 17:05] VITALS: BP 117/86
== END 2024-11-20 17:41 | disposition home or self-care (01) ==
LOC: ER 16:52
DX: F94.0 Selective mutism (principal); F41.9 Anxiety disorder, unspecified; Z88.0 Allergy status to penicillin; Z88.8 Allergy status to other drugs, medicaments and biological substances; Z79.899 Other long term (current) drug therapy; J45.909 Unspecified asthma, uncomplicated; K21.9 Gastro-esophageal reflux disease without esophagitis
CPT/HCPCS: 99283; A9270

== ENCOUNTER 2024-11-21 09:48 | Inpatient (IN) | payer MEDICARE, OTHER ==
[~2024-11-21] VITALS: Ht 177.8 cm; Wt 70.3 kg
[2024-11-21 10:19] VITALS: BP 105/46
[2024-11-21 11:14] LABS: BASOPHILS ABSOLUTE AUTO 0.06 K/mm3 (0.00-0.23); BASOPHILS PERCENT AUTO 1 % (0-2); EOSINOPHILS ABSOLUTE AUTO 0.03 K/mm3 (0.00-0.68); EOSINOPHILS PERCENT AUTO 0 % (0-6); Hematocrit 45.3 % (33.0-51.0); Hemoglobin 14.6 g/dL (11.5-16.0); IMMATURE GRAN ABSOLUTE AUTO 0.02 K/mm3 (0.00-0.10); IMMATURE GRAN PERCENT AUTO 0 % (0-1); LYMPHOCYTES ABSOLUTE AUTO 1.09 K/mm3 (0.84-5.20); LYMPHOCYTES PERCENT AUTO 13 % (21-46); MONOCYTES ABSOLUTE AUTO 0.61 K/mm3 (0.16-1.47); MONOCYTES PERCENT AUTO 7 % (4-13); Mean Corpuscular HGB Conc 32.2 g/dL (31.5-36.5); Mean Corpuscular Volume 91 fL (80-100); NEUTROPHILS ABSOLUTE AUTO 6.45 K/mm3 (1.96-9.15); NEUTROPHILS PERCENT AUTO 78 % (41-73); NRBC ABSOLUTE 0.00 K/mm3 (0.00-0.02); NRBC Auto 0.0 /100 WBC (0.0-0.2); Platelet Count 252 K/mm3 (150-400); RDW Coefficient Variation 14.5 % (11.7-14.2); RDW Standard Deviation 48.1 fL (35.1-46.3)
[2024-11-21 11:29] LABS: Ethanol (Alcohol), Blood, Med <3 mg/dL; Salicylate <1.7 mg/dL (2.8-20.0)
[2024-11-21 11:31] LABS: Acetaminophen, Random <2.0 ug/mL (10.0-30.0); Alanine Aminotransfer (ALT/SGP 28 U/L (12-78); Albumin, Blood 4.3 g/dL (3.4-5.0); Albumin/Globulin Ratio 1.1 (0.8-1.8); Anion Gap 6 mmol/L (3-11); Aspartate Aminotrans (AST/SGOT 29 U/L (12-37); Bilirubin, Total 0.6 mg/dL (0.1-1.0); Blood Urea Nitrogen 19 mg/dL (8-24); CO2, Blood 31 mmol/L (21-32); Calcium, Blood 9.4 mg/dL (8.5-10.1); Chloride, Blood 102 mmol/L (98-108); Creatinine, Blood 0.68 mg/dL (0.40-1.00); Globulin, Blood 4.0 g/dL (2.2-4.0); Glucose, Blood 111 mg/dL (70-99); Potassium, Blood 2.9 mmol/L (3.5-5.5); Sodium, Blood 136 mmol/L (136-145); Total Protein, Blood 8.3 g/dL (6.4-8.2)
[2024-11-21] MEDS ORDERED: Potassium Chloride 10 Meq Tablet SA PO SCH (12:05)
== END 2024-11-21 13:41 | disposition home or self-care (01) | DRG 881 ==
LOC: ER 09:48 → EOR 10:47
PROVIDERS: ADMIT Emergency Medicine
DX: F43.21 Adjustment disorder with depressed mood (principal); F41.9 Anxiety disorder, unspecified; E87.6 Hypokalemia; Z63.4 Disappearance and death of family member; I10 Essential (primary) hypertension; E03.9 Hypothyroidism, unspecified; F32.A Depression, unspecified; K21.9 Gastro-esophageal reflux disease without esophagitis; Z86.73 Personal history of transient ischemic attack (TIA), and cerebral infarction without residual deficits; J45.909 Unspecified asthma, uncomplicated; Z88.0 Allergy status to penicillin; Z88.8 Allergy status to other drugs, medicaments and biological substances; Z79.890 Hormone replacement therapy; Z79.899 Other long term (current) drug therapy
CPT/HCPCS: 71045; 80053; 80320; 85025; 86592; 93005; 93010; 99285-25; A9270; G0378; G0480

== ENCOUNTER 2024-11-26 14:55 | Emergency (ER) | payer MEDICARE, OTHER ==
[~2024-11-26] VITALS: Ht 177.8 cm; Wt 70.3 kg
[2024-11-26 15:06] VITALS: BP 142/98
[2024-11-26 15:20] LABS: BASOPHILS ABSOLUTE AUTO 0.06 K/mm3 (0.00-0.23); BASOPHILS PERCENT AUTO 1 % (0-2); EOSINOPHILS ABSOLUTE AUTO 0.04 K/mm3 (0.00-0.68); EOSINOPHILS PERCENT AUTO 1 % (0-6); Hematocrit 38.2 % (33.0-51.0); Hemoglobin 12.8 g/dL (11.5-16.0); IMMATURE GRAN ABSOLUTE AUTO 0.01 K/mm3 (0.00-0.10); IMMATURE GRAN PERCENT AUTO 0 % (0-1); LYMPHOCYTES ABSOLUTE AUTO 1.14 K/mm3 (0.84-5.20); LYMPHOCYTES PERCENT AUTO 18 % (21-46); MONOCYTES ABSOLUTE AUTO 0.51 K/mm3 (0.16-1.47); MONOCYTES PERCENT AUTO 8 % (4-13); Mean Corpuscular HGB Conc 33.5 g/dL (31.5-36.5); Mean Corpuscular Volume 88 fL (80-100); NEUTROPHILS ABSOLUTE AUTO 4.68 K/mm3 (1.96-9.15); NEUTROPHILS PERCENT AUTO 73 % (41-73); NRBC ABSOLUTE 0.00 K/mm3 (0.00-0.02); NRBC Auto 0.0 /100 WBC (0.0-0.2); Platelet Count 193 K/mm3 (150-400); RDW Coefficient Variation 14.1 % (11.7-14.2); RDW Standard Deviation 45.3 fL (35.1-46.3)
[2024-11-26 16:08] LABS: Alanine Aminotransfer (ALT/SGP 19.0 U/L (12-78); Albumin, Blood 3.5 g/dL (3.4-5.0); Albumin/Globulin Ratio 1.0 (0.8-1.8); Anion Gap 7.0 mmol/L (3-11); Aspartate Aminotrans (AST/SGOT 23.0 U/L (12-37); Bilirubin, Total 0.4 mg/dL (0.1-1.0); Blood Urea Nitrogen 19.0 mg/dL (8-24); CO2, Blood 26.0 mmol/L (21-32); Calcium, Blood 9.1 mg/dL (8.5-10.1); Chloride, Blood 108.0 mmol/L (98-108); Creatinine, Blood 0.66 mg/dL (0.40-1.00); Globulin, Blood 3.5 g/dL (2.2-4.0); Glucose, Blood 103.0 mg/dL (70-99); Potassium, Blood 3.4 mmol/L (3.5-5.5); Sodium, Blood 138.0 mmol/L (136-145); Total Protein, Blood 7.0 g/dL (6.4-8.2)
== END 2024-11-26 16:23 | disposition left against medical advice (07) ==
LOC: ER 14:55
PROVIDERS: Student in an Organized Health Care Education/Training Program
DX: R07.2 Precordial pain (principal); Z53.29 Procedure and treatment not carried out because of patient's decision for other reasons
CPT/HCPCS: 71046; 80053; 83690; 84484; 85025; 93005; 93010; 99282-25

== ENCOUNTER 2025-01-09 19:03 | Emergency (ER) | payer MEDICARE, OTHER ==
[~2025-01-09] VITALS: Ht 177.8 cm; Wt 70.3 kg
[2025-01-09 20:30] LABS: BASOPHILS ABSOLUTE AUTO 0.05 K/mm3 (0.00-0.23); BASOPHILS PERCENT AUTO 1 % (0-2); EOSINOPHILS ABSOLUTE AUTO 0.08 K/mm3 (0.00-0.68); EOSINOPHILS PERCENT AUTO 1 % (0-6); Hematocrit 40.8 % (33.0-51.0); Hemoglobin 13.5 g/dL (11.5-16.0); IMMATURE GRAN ABSOLUTE AUTO 0.02 K/mm3 (0.00-0.10); IMMATURE GRAN PERCENT AUTO 0 % (0-1); LYMPHOCYTES ABSOLUTE AUTO 1.50 K/mm3 (0.84-5.20); LYMPHOCYTES PERCENT AUTO 21 % (21-46); MONOCYTES ABSOLUTE AUTO 0.60 K/mm3 (0.16-1.47); MONOCYTES PERCENT AUTO 8 % (4-13); Mean Corpuscular HGB Conc 33.1 g/dL (31.5-36.5); Mean Corpuscular Volume 88 fL (80-100); NEUTROPHILS ABSOLUTE AUTO 5.01 K/mm3 (1.96-9.15); NEUTROPHILS PERCENT AUTO 69 % (41-73); NRBC ABSOLUTE 0.00 K/mm3 (0.00-0.02); NRBC Auto 0.0 /100 WBC (0.0-0.2); Platelet Count 185 K/mm3 (150-400); RDW Coefficient Variation 13.1 % (11.7-14.2); RDW Standard Deviation 42.0 fL (35.1-46.3)
[2025-01-09 20:55] LABS: Alanine Aminotransfer (ALT/SGP 20.0 U/L (12-78); Albumin, Blood 4.0 g/dL (3.4-5.0); Albumin/Globulin Ratio 1.1 (0.8-1.8); Anion Gap 7.0 mmol/L (3-11); Aspartate Aminotrans (AST/SGOT 19.0 U/L (12-37); Bilirubin, Total 0.3 mg/dL (0.1-1.0); Blood Urea Nitrogen 28.0 mg/dL (8-24); CO2, Blood 30.0 mmol/L (21-32); Calcium, Blood 9.6 mg/dL (8.5-10.1); Chloride, Blood 105.0 mmol/L (98-108); Creatinine, Blood 0.72 mg/dL (0.40-1.00); Globulin, Blood 3.7 g/dL (2.2-4.0); Glucose, Blood 105.0 mg/dL (70-99); Potassium, Blood 3.8 mmol/L (3.5-5.5); Sodium, Blood 138.0 mmol/L (136-145); Total Protein, Blood 7.7 g/dL (6.4-8.2)
[2025-01-10 00:25] VITALS: BP 111/74
== END 2025-01-10 00:27 | disposition home or self-care (01) ==
LOC: ER 19:03
PROVIDERS: Student in an Organized Health Care Education/Training Program
DX: F41.9 Anxiety disorder, unspecified (principal); R06.02 Shortness of breath; I10 Essential (primary) hypertension; K21.9 Gastro-esophageal reflux disease without esophagitis; Z86.73 Personal history of transient ischemic attack (TIA), and cerebral infarction without residual deficits; E03.9 Hypothyroidism, unspecified; Z79.899 Other long term (current) drug therapy; Z88.0 Allergy status to penicillin; Z88.8 Allergy status to other drugs, medicaments and biological substances
CPT/HCPCS: 71046; 80053; 83690; 83880; 84484; 85025; 93005; 93010; 99285-25

== ENCOUNTER 2025-01-13 18:38 | Emergency (ER) | payer MEDICARE, OTHER ==
[~2025-01-13] VITALS: Ht 177.8 cm; Wt 61.2 kg
[2025-01-13 19:28] LABS: BASOPHILS ABSOLUTE AUTO 0.03 K/mm3 (0.00-0.23); BASOPHILS PERCENT AUTO 0 % (0-2); EOSINOPHILS ABSOLUTE AUTO 0.04 K/mm3 (0.00-0.68); EOSINOPHILS PERCENT AUTO 0 % (0-6); Hematocrit 41.1 % (33.0-51.0); Hemoglobin 14.2 g/dL (11.5-16.0); IMMATURE GRAN ABSOLUTE AUTO 0.04 K/mm3 (0.00-0.10); IMMATURE GRAN PERCENT AUTO 0 % (0-1); LYMPHOCYTES ABSOLUTE AUTO 0.60 K/mm3 (0.84-5.20); LYMPHOCYTES PERCENT AUTO 5 % (21-46); MONOCYTES ABSOLUTE AUTO 0.42 K/mm3 (0.16-1.47); MONOCYTES PERCENT AUTO 4 % (4-13); Mean Corpuscular HGB Conc 34.5 g/dL (31.5-36.5); Mean Corpuscular Volume 85 fL (80-100); NEUTROPHILS ABSOLUTE AUTO 10.07 K/mm3 (1.96-9.15); NEUTROPHILS PERCENT AUTO 90 % (41-73); NRBC ABSOLUTE 0.00 K/mm3 (0.00-0.02); NRBC Auto 0.0 /100 WBC (0.0-0.2); RDW Coefficient Variation 13.2 % (11.7-14.2); RDW Standard Deviation 40.5 fL (35.1-46.3)
[2025-01-13 19:44] LABS: Alanine Aminotransfer (ALT/SGP 23.0 U/L (12-78); Albumin, Blood 3.9 g/dL (3.4-5.0); Albumin/Globulin Ratio 1.1 (0.8-1.8); Anion Gap 8.0 mmol/L (3-11); Aspartate Aminotrans (AST/SGOT 21.0 U/L (12-37); Bilirubin, Total 0.6 mg/dL (0.1-1.0); Blood Urea Nitrogen 29.0 mg/dL (8-24); CO2, Blood 26.0 mmol/L (21-32); Calcium, Blood 9.6 mg/dL (8.5-10.1); Chloride, Blood 108.0 mmol/L (98-108); Creatinine, Blood 0.61 mg/dL (0.40-1.00); Globulin, Blood 3.7 g/dL (2.2-4.0); Glucose, Blood 116.0 mg/dL (70-99); Potassium, Blood 3.5 mmol/L (3.5-5.5); Sodium, Blood 138.0 mmol/L (136-145); Total Protein, Blood 7.6 g/dL (6.4-8.2)
[2025-01-13 19:47] LABS: Platelet Count 160 K/mm3 (150-400)
[2025-01-13 20:00] VITALS: BP 124/86
[2025-01-13 20:22] LABS: Acetaminophen, Random <2.0 ug/mL (10.0-30.0); Ethanol (Alcohol), Blood, Med 5 mg/dL; Salicylate <1.7 mg/dL (2.8-20.0)
== END 2025-01-13 21:48 | disposition home or self-care (01) ==
LOC: ER 18:38
PROVIDERS: Emergency Medicine
DX: F32.A Depression, unspecified (principal); J45.909 Unspecified asthma, uncomplicated; E03.9 Hypothyroidism, unspecified; I10 Essential (primary) hypertension; K21.9 Gastro-esophageal reflux disease without esophagitis; Z88.0 Allergy status to penicillin; Z88.1 Allergy status to other antibiotic agents; Z88.8 Allergy status to other drugs, medicaments and biological substances; Z79.890 Hormone replacement therapy; Z79.899 Other long term (current) drug therapy
CPT/HCPCS: 71045; 80053; 80320; 84484; 85025; 93005; 93010; 99285-25; G0480

== ENCOUNTER 2025-01-15 18:09 | Emergency (ER) | payer MEDICARE, OTHER ==
[~2025-01-15] VITALS: Ht 157.5 cm; Wt 49.9 kg
[2025-01-15 22:00] VITALS: BP 178/72
== END 2025-01-15 22:01 | disposition home or self-care (01) ==
LOC: ER 18:09
DX: R06.02 Shortness of breath (principal); F41.9 Anxiety disorder, unspecified; K21.9 Gastro-esophageal reflux disease without esophagitis; E03.9 Hypothyroidism, unspecified; I10 Essential (primary) hypertension; Z86.73 Personal history of transient ischemic attack (TIA), and cerebral infarction without residual deficits; J45.909 Unspecified asthma, uncomplicated; Z79.899 Other long term (current) drug therapy; Z88.0 Allergy status to penicillin; Z88.8 Allergy status to other drugs, medicaments and biological substances
CPT/HCPCS: 99282

== ENCOUNTER 2025-01-24 15:04 | Emergency (ER) | payer MEDICARE, OTHER ==
[~2025-01-24] VITALS: Ht 170.2 cm; Wt 59.0 kg
[2025-01-24 15:23] VITALS: BP 132/94
== END 2025-01-24 15:32 | disposition home or self-care (01) ==
LOC: ER 15:04
DX: R06.02 Shortness of breath (principal); J45.909 Unspecified asthma, uncomplicated; I10 Essential (primary) hypertension; E03.9 Hypothyroidism, unspecified; K21.9 Gastro-esophageal reflux disease without esophagitis; Z53.29 Procedure and treatment not carried out because of patient's decision for other reasons; Z88.0 Allergy status to penicillin; Z88.1 Allergy status to other antibiotic agents; Z79.890 Hormone replacement therapy; Z79.899 Other long term (current) drug therapy
CPT/HCPCS: 99285

== ENCOUNTER 2025-01-28 10:42 | Emergency (ER) | payer MEDICARE, OTHER ==
[~2025-01-28] VITALS: Ht 177.8 cm; Wt 52.2 kg
[2025-01-28 10:57] VITALS: BP 117/82
[2025-01-28] MEDS ORDERED: Ventolin5 MG/1 ML INH (11:07)
== END 2025-01-28 16:07 | disposition home or self-care (01) ==
LOC: ER 10:42
DX: R06.02 Shortness of breath (principal); F41.9 Anxiety disorder, unspecified; Z88.0 Allergy status to penicillin; Z76.0 Encounter for issue of repeat prescription; J44.9 Chronic obstructive pulmonary disease, unspecified; I10 Essential (primary) hypertension; K21.9 Gastro-esophageal reflux disease without esophagitis; Z79.899 Other long term (current) drug therapy
CPT/HCPCS: 99283

== ENCOUNTER 2025-02-19 10:55 | Emergency (ER) | payer MEDICARE, OTHER ==
[~2025-02-19] VITALS: Ht 172.7 cm; Wt 49.9 kg
[~2025-02-19 10:55] MED LIST changes: +Ventolin5 MG/1 ML INH
[2025-02-19] MEDS ORDERED: SERT25 PO (12:20)
[2025-02-19 13:06] LABS: BASOPHILS ABSOLUTE AUTO 0.04 K/mm3 (0.00-0.23); BASOPHILS PERCENT AUTO 0 % (0-2); EOSINOPHILS ABSOLUTE AUTO 0.08 K/mm3 (0.00-0.68); EOSINOPHILS PERCENT AUTO 1 % (0-6); Hematocrit 39.5 % (33.0-51.0); Hemoglobin 12.7 g/dL (11.5-16.0); IMMATURE GRAN ABSOLUTE AUTO 0.05 K/mm3 (0.00-0.10); IMMATURE GRAN PERCENT AUTO 0 % (0-1); LYMPHOCYTES ABSOLUTE AUTO 1.24 K/mm3 (0.84-5.20); LYMPHOCYTES PERCENT AUTO 11 % (21-46); MONOCYTES ABSOLUTE AUTO 0.59 K/mm3 (0.16-1.47); MONOCYTES PERCENT AUTO 5 % (4-13); Mean Corpuscular HGB Conc 32.2 g/dL (31.5-36.5); Mean Corpuscular Volume 89 fL (80-100); NEUTROPHILS ABSOLUTE AUTO 9.50 K/mm3 (1.96-9.15); NEUTROPHILS PERCENT AUTO 83 % (41-73); NRBC ABSOLUTE 0.00 K/mm3 (0.00-0.02); NRBC Auto 0.0 /100 WBC (0.0-0.2); Platelet Count 286 K/mm3 (150-400); RDW Coefficient Variation 13.7 % (11.7-14.2); RDW Standard Deviation 44.2 fL (35.1-46.3)
[2025-02-19 13:17] LABS: Source, Urine Clean Catch
[2025-02-19 13:30] LABS: Bilirubin, Urine Neg (Neg); Color, Urine Yellow (P-Yellow); Glucose Qualitative, Urine Neg (Neg); Ketones, Urine Neg (Neg); Leukocyte Esterase, Urine 1+ (Neg); Protein, Urine 2+ (Neg); Specific Gravity, Urine 1.020 (1.003-1.022); Urobilinogen, Urine 1+ (Normal)
[2025-02-19 13:51] LABS: U Amphetamine Screen Not Detected; U Barbiturate Screen Not Detected; U Benzodiazapine Screen Not Detected; U Buprenorphine Screen Not Detected; U Cannabinoids Screen Not Detected; U Cocaine Screen Not Detected; U Methadone Screen Not Detected; U Methamphetamine Screen Not Detected; U Opiates Screen Not Detected; U Oxycodone Screen Not Detected; U Phencyclidine Screen Not Detected
[2025-02-19 13:54] LABS: Red Blood Cells, Urine 0-2 /hpf (0-2); Yeast/Fungi Urine Mod /hpf
[2025-02-19 13:57] LABS: Ethanol (Alcohol), Blood, Med <3 mg/dL; Salicylate <1.7 mg/dL (2.8-20.0)
[2025-02-19 14:53] LABS: Acetaminophen, Random <2.0 ug/mL (10.0-30.0); Alanine Aminotransfer (ALT/SGP 22 U/L (12-78); Albumin, Blood 3.4 g/dL (3.4-5.0); Albumin/Globulin Ratio 0.7 (0.8-1.8); Anion Gap 7 mmol/L (3-11); Aspartate Aminotrans (AST/SGOT 25 U/L (12-37); Bilirubin, Total 0.3 mg/dL (0.1-1.0); Blood Urea Nitrogen 17 mg/dL (8-24); CO2, Blood 30 mmol/L (21-32); Calcium, Blood 9.1 mg/dL (8.5-10.1); Chloride, Blood 102 mmol/L (98-108); Creatinine, Blood 0.60 mg/dL (0.40-1.00); Globulin, Blood 4.7 g/dL (2.2-4.0); Glucose, Blood 106 mg/dL (70-99); Potassium, Blood 3.4 mmol/L (3.5-5.5); Sodium, Blood 136 mmol/L (136-145); Total Protein, Blood 8.1 g/dL (6.4-8.2)
[2025-02-19 15:32] VITALS: BP 132/80
== END 2025-02-19 15:45 | disposition other institution (70) ==
LOC: ER 10:55
PROVIDERS: Student in an Organized Health Care Education/Training Program
DX: R45.851 Suicidal ideations (principal); J45.909 Unspecified asthma, uncomplicated
CPT/HCPCS: 36415; 80053; 80320; 81001; 81025; 85025; 87086; 87106; 99285; G0480

== ENCOUNTER 2025-02-19 14:11 | Inpatient (IN) | payer MEDICARE, OTHER ==
[~2025-02-19] VITALS: Ht 177.8 cm; Wt 47.7 kg
[~2025-02-19 14:11] MED LIST changes: +SERT25 PO
[2025-02-19] MEDS ORDERED: Aluminum Hydroxide 320MG/5ML 473 ML PO PRN (16:15)
[2025-02-19] MEDS ORDERED: LORazepam 2 MG/ML 1ML Injection IM PRN (16:20)
[2025-02-19] MEDS ORDERED: Polyethylene Glycol 3350 17 gm PO PRN (16:20)
[2025-02-19] MEDS ORDERED: DiphenhydrAMINE HCl 50 MG/ML 1ML Vial IM PRN (16:20)
[2025-02-19] MEDS ORDERED: Ondansetron 4 MG SoluTab MM PRN (16:20)
[2025-02-19] MEDS ORDERED: Haloperidol Lactate Inj. 5 MG/ML Injection IM PRN (16:30)
[2025-02-19 17:01] VITALS: BP 146/62
[2025-02-19 19:47] VITALS: BP 134/95
[2025-02-20] MEDS ORDERED: Multivitamins 1 Tab PO SCH (09:00)
[2025-02-20 09:04] VITALS: BP 123/89
[2025-02-20] MEDS ORDERED: FLU VACC TS2025-26(6MOS UP)/PF 45 MCG/0.5 ML SYRINGE IM SCH (18:00)
[2025-02-20 19:33] VITALS: BP 123/91
[2025-02-21 09:07] VITALS: BP 136/102
[2025-02-21 21:00] VITALS: BP 130/96
[2025-02-22 09:38] VITALS: BP 125/70
[2025-02-22 20:54] VITALS: BP 150/126
[2025-02-23 20:21] VITALS: BP 133/98
[2025-02-24] MEDS ORDERED: FLUC200 PO (12:53)
[2025-02-24] MEDS ORDERED: SERT50 PO (12:53)
== END 2025-02-24 14:22 | DRG 881 ==
LOC: BHU 14:11
PROVIDERS: ADMIT Psychiatry & Neurology Psychiatry
DX: F32.A Depression, unspecified (principal); R45.851 Suicidal ideations; Z59.01 Sheltered homelessness; I10 Essential (primary) hypertension; F43.25 Adjustment disorder with mixed disturbance of emotions and conduct; E03.9 Hypothyroidism, unspecified; K21.9 Gastro-esophageal reflux disease without esophagitis; F03.90 Unspecified dementia, unspecified severity, without behavioral disturbance, psychotic disturbance, mood disturbance, and anxiety; Z88.0 Allergy status to penicillin; Z88.8 Allergy status to other drugs, medicaments and biological substances; Z79.899 Other long term (current) drug therapy
CPT/HCPCS: A9270

== ENCOUNTER 2025-04-02 18:32 | Emergency (ER) | payer MEDICARE, OTHER ==
[~2025-04-02] VITALS: Ht 162.6 cm; Wt 61.2 kg
[~2025-04-02 18:32] MED LIST changes: +FLUC200 PO; +SERT50 PO
[2025-04-02 18:52] VITALS: BP 128/75
== END 2025-04-02 20:54 | disposition home or self-care (01) ==
LOC: ER 18:32
DX: Z03.6 Encounter for observation for suspected toxic effect from ingested substance ruled out (principal); Z86.73 Personal history of transient ischemic attack (TIA), and cerebral infarction without residual deficits; Z88.0 Allergy status to penicillin; Z88.1 Allergy status to other antibiotic agents; Z88.8 Allergy status to other drugs, medicaments and biological substances; Z79.899 Other long term (current) drug therapy
CPT/HCPCS: 99283